=== PATIENT | male | born 1965 | race Caucasian/White ===

== ENCOUNTER 2025-08-04 06:44 | Observation (INO) | payer OTHER ==
[2025-07-31 11:14] VITALS: BMI 30.1
[2025-08-04] MEDS ORDERED: Famotidine/PF 20 mg/2ml Vial ONE (08:08)
[2025-08-04] MEDS ORDERED: Acetaminophen 500 MG TAB ONE (08:08)
[2025-08-04] MEDS ORDERED: Ondansetron PF 4 MG/2 ML Vial ONE (08:29)
[2025-08-04] MEDS ORDERED: Lidocaine 1% PF 5 ML VIAL ONE (08:29)
[2025-08-04] MEDS ORDERED: Rocuronium Bromide 10 MG/ML (10ML VIAL) ONE (08:29)
[2025-08-04] MEDS ORDERED: PROPOFOL 40 ML ONE (08:30)
[2025-08-04] MEDS ORDERED: SUGAMMADEX SODIUM 200 MG/2 ML VIAL ONE (08:30)
[2025-08-04] MEDS ORDERED: AFRIN NASAL MIST 15 ML BOT ONE (08:35)
[2025-08-04 08:46] LABS: Hematocrit 45.8 % (38.8-50.0); Hemoglobin 16.0 g/dL (13.5-17.5); Mean Corpuscular Hemoglobin 30.2 pg (27.0-33.0); Mean Corpuscular Volume 86.6 fL (81.2-95.1); Platelet Count 128 10x3/uL (150-450); Red Blood Cell (RBC) Count 5.29 10x6/uL (4.32-5.72); White Blood Cell (WBC) Count 3.22 10x3/uL (3.5-10.5)
[2025-08-04 08:50] LABS: Anion Gap 13 mmol/L (10-20); BUN (Urea Nitrogen) 17 mg/dL (8.4-25.7); Calc. Creatinine Clearance 81 mL/min (70-130); Calcium 9.1 mg/dL (7.8-10.44); Carbon Dioxide 24 mmol/L (22-29); Chloride 104 mmol/L (98-107); Glucose 113 mg/dL (70-105); Potassium 4.3 mmol/L (3.5-5.1); Sodium 137 mmol/L (136-145)
[2025-08-04] MEDS ORDERED: Ondansetron PF 4 MG/2 ML Vial IVP PRN (09:45)
[2025-08-04] MEDS ORDERED: Acetaminophen/Codeine 30-300mg Tablet PO PRN (09:45)
[2025-08-04 13:14] LABS: Calcium 8.8 mg/dL (7.8-10.44)
[2025-08-04] MEDS: Calcium Carbonate 500 MG ChewTAB PO SCH (15:58)
[2025-08-04] MEDS: Acetaminophen/Codeine 30-300mg Tablet PO PRN (16:34)
[2025-08-04 19:48] LABS: Calcium 9.5 mg/dL (7.8-10.44)
[2025-08-05 04:46] LABS: Calcium 9.5 mg/dL (7.8-10.44)
[2025-08-05 05:23] VITALS: TEMP 98.2
[2025-08-05 08:00] VITALS: BP 139/84
[2025-08-05] MEDS ORDERED: Lisinopril 20 MG TAB PO SCH (09:00)
[2025-08-05] MEDS ORDERED: Famotidine 20 MG TAB PO SCH (09:00)
== END 2025-08-05 07:53 | disposition home or self-care (01) ==
LOC: CSHSDC 06:44 → CSHTELE 14:57
PROVIDERS: ADMIT Otolaryngology Otolaryngic Allergy; ATTEND Otolaryngology Otolaryngic Allergy
PROC: 0GTK0ZZ Resection of Thyroid Gland, Open Approach (ICD-10-PCS; principal; 2025-08-04)
PROC: 0GSR0ZZ Reposition Parathyroid Gland, Open Approach (ICD-10-PCS; 2025-08-04)
DX: C73 Malignant neoplasm of thyroid gland (principal); Z88.0 Allergy status to penicillin; Z79.899 Other long term (current) drug therapy
CPT/HCPCS: 36415; 80048; 82310; 83970; 85027; 88305; 88307; 88331; 88341; 88342; J0169; J1100; J1308; J2250; J2405; J2704; J3010; J3490